=== PATIENT | female | born 1960 | race Caucasian/White ===

== ENCOUNTER 2024-05-25 14:31 | Inpatient (IN) | payer MEDICARE ==
[~2024-05-25] VITALS: Ht 165.1 cm; Wt 55.3 kg
[2024-05-25] MEDS ORDERED: LAMO100T2 PO (15:18)
[2024-05-25] MEDS ORDERED: METO25TA6 PO (15:18)
[2024-05-25] MEDS ORDERED: CLON0.2T PO (15:18)
[2024-05-25] MEDS ORDERED: ALPR2TAB2 PO (15:18)
[2024-05-25] MEDS ORDERED: LOSA100T31 PO (15:18)
[2024-05-25] MEDS ORDERED: TOLT2CAP22 PO (15:18)
[2024-05-25] MEDS ORDERED: MAG HYDROX/AL HYDROX/SIMETH 30 ML UDC PO PRN (15:30)
[2024-05-25] MEDS ORDERED: MAGNESIUM HYDROXIDE 30 ML UDC PO PRN (15:30)
[2024-05-25] MEDS ORDERED: LORAZEPAM 0.5 MG TABLET PO PRN (15:30)
[2024-05-25] MEDS: BLOOD SUGAR DIAGNOSTIC 1 EACH STRIP IN ONE (15:33)
[2024-05-25 16:00] VITALS: BP 144/71; TEMP 97.5; O2SAT 99
[2024-05-25] MEDS: NICOTINE PATCH (21MG) 21 MG PATCH.TD24 TD SCH (17:48)
[2024-05-25] MEDS: CLONIDINE HCL 0.1 MG TABLET PO SCH (17:50)
[2024-05-25] MEDS: LOSARTAN POTASSIUM 50 MG TABLET PO SCH (17:50)
[2024-05-25] MEDS: METOPROLOL TARTRATE 25 MG TABLET PO SCH (17:51)
[2024-05-25] MEDS ORDERED: IBUPROFEN 800 MG TABLET PO PRN (18:00)
[2024-05-25] MEDS: IBUPROFEN 400 MG TABLET PO PRN (18:12)
[2024-05-25 20:00] VITALS: BP 141/76; TEMP 97.7; O2SAT 99
[2024-05-26 07:46] LABS: THYROID STIMULATING HORMONE 2.44 uIU/mL (0.358-3.74)
[2024-05-26 08:00] VITALS: BP 141/82; TEMP 98.9; O2SAT 99
[2024-05-26 08:07] LABS: CREATININE 0.6 mg/dL (0.6-1.3)
[2024-05-26 08:14] LABS: ALBUMIN 3.7 g/dL (3.4-5.0); BILIRUBIN,TOTAL 0.5 mg/dL (0.2-1.0); CALCIUM, SERUM 9.4 mg/dL (8.5-10.1); CREATININE 0.7 mg/dL (0.6-1.3); POTASSIUM 3.8 mmol/L (3.5-5.1); TOTAL PROTEIN, SERUM 7.6 g/dL (6.4-8.2)
[2024-05-26] MEDS: TOLTERODINE 2 MG CAP.SR PO SCH (08:42)
[2024-05-26] MEDS: NICOTINE PATCH (14MG) 14 MG PATCH.TD24 TD SCH (09:31)
[2024-05-26] MEDS: LORAZEPAM 0.5 MG TABLET PO PRN (14:34)
[2024-05-26 16:00] VITALS: BP 146/80; TEMP 98.8; O2SAT 98
[2024-05-26] MEDS: DIVALPROEX SODIUM 250 MG TABLET.DR PO SCH (16:19)
[2024-05-26 20:00] VITALS: BP 129/79; TEMP 97.7; O2SAT 98
[2024-05-27 08:00] VITALS: BP 141/77; TEMP 98.2; O2SAT 100
[2024-05-27 16:00] VITALS: BP 143/79; TEMP 97.5; O2SAT 98
[2024-05-27] MEDS: TEMAZEPAM 7.5 MG CAPSULE PO PRN (20:28)
[2024-05-27 20:58] VITALS: BP 129/72; TEMP 98.6; O2SAT 98
[2024-05-28 08:00] VITALS: BP 153/76; TEMP 98.6; O2SAT 99
[2024-05-28] MEDS: ACETAMINOPHEN 325 MG TABLET PO PRN (12:04)
[2024-05-28] MEDS: DIVALPROEX SODIUM 250 MG TABLET.DR PO SCH (13:25)
[2024-05-28 16:00] VITALS: BP 144/80; TEMP 97.8; O2SAT 98
[2024-05-28] MEDS: DIVALPROEX SODIUM 500 MG TABLET.DR PO SCH (16:55)
[2024-05-28 20:55] VITALS: BP 138/77; TEMP 98.8; O2SAT 98
[2024-05-29 08:00] VITALS: BP 152/90; TEMP 98.1; O2SAT 99
[2024-05-29 16:00] VITALS: BP 150/90; TEMP 97.9; O2SAT 100
[2024-05-29] MEDS: DIVALPROEX SODIUM 500 MG TABLET.DR PO SCH ×2 (16:58→21:17)
[2024-05-29 20:00] VITALS: BP 138/69; TEMP 99; O2SAT 97
[2024-05-30 08:00] VITALS: BP 145/84; TEMP 97.8; O2SAT 97
[2024-05-30 16:00] VITALS: BP 130/73; TEMP 98.6; O2SAT 99
[2024-05-30 20:00] VITALS: BP 145/88; TEMP 98.3; O2SAT 98
[2024-05-30] MEDS ORDERED: FLUTICASONE PROPIONATE 16 GM BOTTLE NS SCH (21:00)
[2024-05-30] MEDS: LORATADINE 10 MG TABLET PO SCH (21:31)
[2024-05-30] MEDS: FLUTICASONE PROPIONATE 16 GM BOTTLE NS SCH (21:32)
[2024-05-31 08:00] VITALS: BP 151/91; TEMP 98; O2SAT 99
[2024-05-31] MEDS: OLANZAPINE 10 MG VIAL IM STA ×2 (12:17→12:31)
[2024-05-31] MEDS: OLANZAPINE ZYDIS 5 MG TAB.RAPDIS SL ONE (12:25)
[2024-05-31 16:00] VITALS: BP 157/81; TEMP 98.6; O2SAT 98
[2024-05-31 20:00] VITALS: BP 120/74; TEMP 98; O2SAT 99
[2024-06-01 08:00] VITALS: BP 112/84; TEMP 98; O2SAT 96
[2024-06-01] MEDS: OLANZAPINE 10 MG VIAL IM ONE (15:43)
[2024-06-01 16:21] VITALS: BP 154/84; TEMP 97.7; O2SAT 96
[2024-06-01 20:22] VITALS: BP 123/70; TEMP 98.2; O2SAT 99
[2024-06-01] MEDS: OLANZAPINE 5 MG TABLET PO SCH (21:11)
[2024-06-02 16:00] VITALS: BP 152/76; TEMP 98; O2SAT 98
[2024-06-02 20:31] VITALS: BP 155/82; TEMP 98.6; O2SAT 99
[2024-06-03 08:00] VITALS: BP 149/83; TEMP 97.9; O2SAT 99
[2024-06-03 16:08] VITALS: BP 159/83; TEMP 97.8; O2SAT 99
[2024-06-03 20:51] VITALS: BP 152/90; TEMP 97.9; O2SAT 97
[2024-06-04 08:00] VITALS: BP 157/97; TEMP 98.3; O2SAT 97
[2024-06-04 16:00] VITALS: BP 151/83; TEMP 97.8; O2SAT 99
[2024-06-04 21:08] VITALS: BP 142/94; TEMP 97.9; O2SAT 98
[2024-06-05 08:00] VITALS: BP 142/83; TEMP 97.6; O2SAT 99
[2024-06-05 08:43] VITALS: BP 142/83; TEMP 97.6; O2SAT 99
== END 2024-06-05 11:05 | DRG 885 ==
LOC: GPS 14:31
PROVIDERS: ADMIT Psychiatry & Neurology Psychosomatic Medicine; ATTEND Student in an Organized Health Care Education/Training Program
DX: F39 Unspecified mood [affective] disorder (principal); F31.89 Other bipolar disorder; I10 Essential (primary) hypertension; Z88.2 Allergy status to sulfonamides; Z20.822 Contact with and (suspected) exposure to COVID-19; Z73.6 Limitation of activities due to disability; F17.210 Nicotine dependence, cigarettes, uncomplicated; F13.10 Sedative, hypnotic or anxiolytic abuse, uncomplicated
CPT/HCPCS: 36415; 71111-TC; 80053-TC; 80061-TC; 80164-TC; 82565-TC; 84443-TC; J3490